=== PATIENT | female | born 1935 | race Caucasian/White ===

== ENCOUNTER → 2017-08-03 | Outpatient (CLI) | payer MEDICARE, OTHER | END | disposition home or self-care (01) | LOC: GMAH 10:58 | PROVIDERS: ATTEND Family Medicine | DX: E78.2 Mixed hyperlipidemia (principal) ==

== ENCOUNTER → 2017-08-04 | Outpatient (CLI) | payer MEDICARE, OTHER | END | disposition home or self-care (01) | LOC: GMAH 15:33 | PROVIDERS: ATTEND Family Medicine | DX: N39.0 Urinary tract infection, site not specified (principal) ==

== ENCOUNTER 2018-01-05 15:53 | Emergency (ER) | payer MEDICARE, OTHER ==
[2018-01-05] MEDS ORDERED: LIDOCAINE 1% 10 ML VIAL INJ ONE (16:08)
[2018-01-05 16:14] VITALS: TEMP 96.7
[2018-01-05] MEDS ORDERED: POVIDONE IODINE 10 % 15 ML UD TOP ONE (16:28)
[2018-01-05] MEDS ORDERED: NEOMYCIN-BACITRACIN-POLYMYXIN 0.9 GM UD TOP ONE (16:52)
--- NOTE | 2018-01-05 16:54 | ED.PDOC ---
History of Present Illness - General Chief Complaint: Laceration Stated Complaint: laceration to nose and chin Time Seen by Provider: 01/05/18 16:26 Source: patient, RN notes reviewed, Vital Signs reviewed Exam Limitations: no limitations - History of Present Illness Timing/Duration: 1 hour Severity: mild Improving Factors: nothing Worsening Factors: nothing Associated Symptoms: denies symptoms Allergies/Adverse Reactions: Allergies NO KNOWN ALLERGY Allergy (Verified 01/05/18 16:15) Home Medications: Ambulatory Orders Amoxicillin [Amoxil] 1,000 mg PO BID #20 cap 01/05/18 Lipitor 01/05/18 Review of Systems - Review of Systems Constitutional: States: no symptoms reported EENTM: States: no symptoms reported Respiratory: States: no symptoms reported Cardiology: States: no symptoms reported Gastrointestinal/Abdominal: States: no symptoms reported Genitourinary: States: no symptoms reported Musculoskeletal: States: no symptoms reported. Denies: back pain, joint pain, joint swelling, muscle pain, muscle stiffness, neck pain Skin: States: other - lacetation Neurological: States: no symptoms reported. Denies: headache, numbness, paresthesia, tingling, tremors, weakness Past Medical History (General) - Patient Medical History Hx Stroke: No Hx Congestive Heart Failure: No Hx Diabetes: No Hx of HIV: No Hx MRSA: Yes - Face Wound MRSA Source:: Wound Surgical History: appendectomy - Vaccination History Hx Tetanus, Diphtheria Vaccination: - unknown Hx Influenza Vaccination: Yes Hx Pneumococcal Vaccination: Yes - Social History Hx Tobacco Use: No - Female History Patient : No Family Medical History - Family History Mother Family History: No Known Living Status: Physical Exam - Physical Exam General Appearance: Alert, Comfortable, No apparent distress Ears, Nose, Throat: hearing grossly normal Neck: non-tender, full range of motion, supple, normal inspection Respiratory: chest non-tender, lungs clear, normal breath sounds, no respiratory distress, no accessory muscle use Cardiovascular/Chest: normal peripheral pulses, regular rate, rhythm, no edema Gastrointestinal/Abdominal: normal bowel sounds, non tender, soft Back Exam: normal inspection Extremity: normal range of motion, non-tender, normal inspection Neurologic: [employer] II-XII nml as tested, no motor/sensory deficits, alert, normal mood/affect, oriented x 3 Skin Exam: other - lacetation 3 cm to nose and 1 cm to chin, hematoma to right zygomatic process with no tenderness to biting, type 1 fracture to left upper incisor, normal rom of mandible Progress - Progress Progress: 01/05/18 16:54 gave trauma precautions, will return if acute worsening or problem Procedures - Laceration/Wound Repair Face Wound's Depth, Shape: superficial Wound Explored: no foreign body removed Irrigated w/ Saline (cc's): 5 Betadine Prep?: Yes Anesthesia: 1% Lidocaine Volume Anesthetic (cc's): 1 Wound Debrided: minimal Wound Repaired With: sutures Suture Size/Type: 5:0, prolene Number of Sutures: 1 - running Layer Closure?: No Sterile Dressing Applied?: Yes Jaw Wound Length (cm): 1 Wound's Depth, Shape: superficial Wound Explored: clean Betadine Prep?: Yes Wound Debrided: minimal Wound Repaired With: dermabond Departure - Departure Clinical Impression: Laceration of nose Qualifiers: Encounter type: initial encounter Qualified Code(s): S01.21XA - Laceration without foreign body of nose, initial encounter Laceration of chin Qualifiers: Encounter type: initial encounter Qualified Code(s): S01.81XA - Laceration without foreign body of other part of head, initial encounter Fall Qualifiers: Encounter type: initial encounter Qualified Code(s): W19.XXXA - Unspecified fall, initial encounter Facial contusion Qualifiers: Encounter type: initial encounter Qualified Code(s): S00.83XA - Contusion of other part of head, initial encounter Time of Disposition: 17:00 Disposition: Discharge to Home or Self Care Condition: Excellent Departure Forms: ED Discharge - Pt. Copy, Patient Portal Self Enrollment Diet: resume usual diet Activity: increase activity as tolerated Referrals: Tutu Dobson MD [Primary Care Provider] - 1-2 Weeks (f/u in 10 days to suture removal) Prescriptions: Amoxicillin [Amoxil] 1,000 mg PO BID #20 cap Home Medications: Ambulatory Orders Amoxicillin [Amoxil] 1,000 mg PO BID #20 cap 01/05/18 Lipitor 01/05/18
[2018-01-05 17:08] VITALS: BP 143/56; O2SAT 98
== END 2018-01-05 17:07 | disposition home or self-care (01) ==
LOC: ER 15:53
DX: S01.21XA Laceration without foreign body of nose, initial encounter (principal); S01.81XA Laceration without foreign body of other part of head, initial encounter; S00.83XA Contusion of other part of head, initial encounter; W19.XXXA Unspecified fall, initial encounter

== ENCOUNTER → 2018-08-05 | Outpatient (CLI) | payer MEDICARE, OTHER | LOC: GMAH 10:59 | PROVIDERS: ATTEND Family Medicine | DX: I10 Essential (primary) hypertension (principal) ==

== ENCOUNTER → 2018-08-06 | Outpatient (CLI) | payer MEDICARE, OTHER | LOC: GMAH 13:39 | PROVIDERS: ATTEND Family Medicine | DX: N39.0 Urinary tract infection, site not specified (principal) ==

== ENCOUNTER → 2019-08-12 | Outpatient (CLI) | payer MEDICARE, OTHER | LOC: GMA MATASK 11:03 | PROVIDERS: ATTEND Family Medicine | DX: I10 Essential (primary) hypertension (principal) ==